=== PATIENT | male | born 1980 | race Caucasian/White ===

== ENCOUNTER 2016-02-09 03:18 | Emergency (ER) | payer OTHER ==
[~2016-02-09] VITALS: Ht 167.6 cm; Wt 68.2 kg
[2016-02-09 03:20] VITALS: TEMP 98
[2016-02-09 04:02] LABS: BASO # 0.1 (0.0-0.2); BASO % 1.1 % (0.0-2.0); EOS # 0.2 (0.0-0.7); EOS % 1.8 % (0-4.0); GRAN # 5.9 (1.4-6.5); GRAN % 47.9 % (42.2-75.2); HEMATOCRIT 42.1 % (42.0-52.0); HEMOGLOBIN 15.7 g/dl (13.5-18.0); LYMPH # 4.9 (1.2-3.4); LYMPH % 39.8 % (20.0-51.0); MEAN CELL VOLUME 87 fl (80.0-100.0); MEAN CORPUSCULAR HEMOGLOBIN 32 pg (27.0-31.0); MEAN CORPUSCULAR HGB CONC 37 g/dl (33.0-37.0); MEAN PLATELET VOLUME 10.1 fl (7.4-10.4); MONO # 1.1 (0.1-0.6); PLATELET COUNT 234 K/mm3 (130-400); RED BLOOD COUNT 4.85 M/mm3 (4.20-5.60); REDCELL DISTRIBUTION WIDTH-CV 12.9 % (11.5-14.5); WHITE BLOOD COUNT 12.3 K/mm3 (4.8-10.8)
[2016-02-09 04:12] LABS: ADJUSTED CALCIUM 9.1 mg/dL (8.4-10.2); ALANINE AMINOTRANSFERASE 48 U/L (21-72); ALKALINE PHOSPHATASE 82 U/L (50-136); ANION GAP 13 mmol/L (7-16); BILIRUBIN,TOTAL 0.7 mg/dL (0.0-1.0); BLOOD UREA NITROGEN 16 mg/dL (9-20); CALCIUM 9.1 mg/dL (8.4-10.2); CARBON DIOXIDE 24 mmol/L (22-30); CHLORIDE 104 mmol/L (98-107); CREATININE, serum 1.12 mg/dL (0.66-1.25); GLUCOSE 93 mg/dL (74-106); LIPASE 129 U/L (23-300); POTASSIUM 3.9 mmol/L (3.4-5.0); SODIUM 141 mmol/L (137-145); TOTAL PROTEIN 7.2 gm/dL (6.4-8.2)
[2016-02-09 04:32] LABS: TROPONIN-I < 0.012 ng/mL (0.000-0.034)
[2016-02-09 04:47] VITALS: BP 119/81; PULSE 77
== END 2016-02-09 04:47 | disposition home or self-care (01) ==
LOC: COL.ER 03:18
PROVIDERS: Emergency Medicine
DX: K29.70 Gastritis, unspecified, without bleeding (principal); F17.290 Nicotine dependence, other tobacco product, uncomplicated

== ENCOUNTER 2019-07-17 10:56 | Inpatient (IN) | payer SELFPAY ==
[~2019-07-17] VITALS: Ht 167.6 cm; Wt 70.8 kg
[2019-07-23] VITALS (12 sets, daily range): BP systolic 102–145; BP diastolic 49–83; PULSE 81–97; TEMP 97.9–100.1
[2019-07-23] MEDS ORDERED: ALEVE 220MG220 MG PO (08:03)
[2019-07-23] MEDS ORDERED: NORCO 325 MG-51 TAB PO (08:04)
[2019-07-23] MEDS ORDERED: PRILOTC PO (08:04)
--- NOTE | 2019-07-23 08:09 | NUR ---
Patient arrives [place] [facility] [place]. He is alert and oriented. Procedure is confirmed. He denies any questions and verbalizes understanding. Breath sounds clear bilaterally to auscultation. Clear S1S2 heart tones heard with regular rate noted. VSS on room air.
--- NOTE | 2019-07-23 10:03 | NUR ---
Patient's temperature ranges from 98.6 degrees to 100.1 degrees, taken 5 times both oral and temporal. He denies any symptoms when asked infectious disease questions. He was tested for COVID 19 and the result was negative. He has been self isolating since his test was collected. Dr. Rogers is notified of low-grade fever and elects to proceed with surgery.
--- NOTE | 2019-07-23 12:58 | NUR ---
Dr Ontiveros notified of consult.
--- NOTE | 2019-07-23 16:19 | NUR ---
Dr Rogers here to see patient.
--- NOTE | 2019-07-23 17:16 | NUR ---
Patient alert and oriented, answers questions appropriately. See assessment. Epidural catheter intact to low back, no drainage or redness noted to site. PCEA settings verified against APR. C/o slight numbness to BLE, pulses palpable, able to move BLE on bed. Patient has many questions about procedure today and what to expect within the next day, often repeating same questions several times. No other c/o at this time.
--- NOTE | 2019-07-23 17:47 | NUR ---
Dr Ontiveros here to see patient.
--- NOTE | 2019-07-23 17:48 | NUR ---
Dr Ontiveros here to see patient.
[2019-07-23 18:37] LABS: BASO # 0.1 (0.0-0.2); BASO % 0.7 % (0.0-2.0); EOS # 0.1 (0.0-0.7); GRAN # 8.1 (1.4-6.5); GRAN % 70.1 % (42.2-75.2); HEMATOCRIT 40.8 % (42.0-52.0); HEMOGLOBIN 14.3 g/dl (13.5-18.0); LYMPH # 2.6 (1.2-3.4); LYMPH % 22.9 % (20.0-51.0); MEAN CELL VOLUME 89 fl (80.0-100.0); MEAN CORPUSCULAR HEMOGLOBIN 31 pg (27.0-31.0); MEAN CORPUSCULAR HGB CONC 35 g/dl (33.0-37.0); MEAN PLATELET VOLUME 9.7 fl (7.4-10.4); MONO # 0.6 (0.1-0.6); MONO % 5.1 % (1.7-9.3); PLATELET COUNT 312 K/mm3 (130-400); RED BLOOD COUNT 4.58 M/mm3 (4.20-5.60); REDCELL DISTRIBUTION WIDTH-CV 12.4 % (11.5-14.5)
[2019-07-23 18:49] LABS: ALBUMIN 3.9 gm/dL (3.5-5.0); BILIRUBIN,TOTAL 0.4 mg/dL (0.0-1.0); C-REACTIVE PROTEIN 1.4 mg/dL (0.0-0.9); CALCIUM 8.9 mg/dL (8.4-10.2); CREATININE, serum 0.86 (0.66-1.25); POTASSIUM 3.7 mmol/L (3.4-5.0); TOTAL PROTEIN 6.9 gm/dL (6.4-8.2)
[2019-07-24] VITALS (10 sets, daily range): BP systolic 103–129; BP diastolic 60–78; PULSE 86–98; TEMP 98.1–99.2
--- NOTE | 2019-07-24 08:45 | NUR ---
Patient alert and oriented, answers questions appropriately. See assessment. Rondon catheter in place, patent, and draining clear yellow urine. Epidural catheter in place to low back, catheter intact, no drainage noted to insertion site. PCEA settings verified against the MAR. Patient reports numbness to BLE, pulses palpable, able to move BLE on bed. Patient had bowel movement in bed, per report has refused to get OOB or use bedpan throughout previous shift. Patient linens changed, bed bath given. Encouraged patient to use bedside commode or bedpan. Patient states "it's easier for me if I just go and you clean me up." Patient also c/o pain to urethra 10/16, rondon catheter repositioned. Patient states "I need to rest, I need more epidural drugs so I can sleep." Anesthesia notified of epidural bag complete.
--- NOTE | 2019-07-24 09:00 | NUR ---
Patient c/o urethral pain 09/15. Requests dose change of epidural r/t urethral pain. Explained to patient pain is r/t rondon catheter. Patient adamant he gets epidural increased. States "I came here to sleep and get rest and I can't do either if I have uretheral pain. Offered to remove rondon catheter, patient refused.
--- NOTE | 2019-07-24 09:56 | NUR ---
SW met with the patient to discuss discharge plan. The patient lives in [place] with his , Geeta Alcazar (ph#[phone]). He reports independence with ADLs and does not have any DME. The patient's primary care provider is Myrna Robledo PA-C and he receives his medications at [facility]. He reports no difficulties obtaining his meds. The patient is self pay. Financial Counseling was consulted and the patient was provided with a Financial Assistance Application. The patient does not have advanced directives and he was not interested in completing one at this time. The patient plans to return home with his upon discharge. SW to continue to follow as needed.
--- NOTE | 2019-07-24 11:00 | NUR ---
Patient upset, states "I don't understand why Dr Rogers didn't do the surgery he was suppose to do, I can't even work like this". Explained to patient that Dr Rogers decision was based on his finding and what he feels is best for the patient. Patient visibly upset and states "I'm not even getting the care I was suppose to get when I agreed to this." Explained to patient that he will have colonoscopy today and that we can proceed from there.
--- NOTE | 2019-07-24 11:56 | NUR ---
First visit from the dentofacial orthopedics dentist. No needs right now.
--- NOTE | 2019-07-24 12:57 | NUR ---
Patient to colonoscopy at 1215.
--- NOTE | 2019-07-24 13:30 | NUR ---
Patient returns from colonoscopy, immediately asks for Dr Rogers, patient wants to proceed with hemmorhoid surgery. Patient notified that Dr Ontiveros has communicated with Dr Rogers r/t colonoscopy and plan of care. Patient requests food. No other c/o at this time.
--- NOTE | 2019-07-24 14:00 | NUR ---
Patient c/o pain to urethra. Encouraged patient to ambulate to bathroom to wash and change gowns. Patient refuses. States "My legs feel weak, I need to rest". Informed patient he would be assisted to bathroom, continues to refuse.
--- NOTE | 2019-07-24 15:30 | NUR ---
Patient continues with numerous complains, unable to satisfy patient. Has had several concerns throughout the day about his providers, inability to rest, pain control. Patient has been encouraged to get out of bed to use the bathroom and ambulate. Patient has continued to have bowel movements in bed, stating "it's easier for me to go to the bathroom in bed and you clean me up". Encouraged patient use bedpan, which he refuses as well. Patient continuously states "no one is informing me of what is going on, no one has been in my room for the last six hours." Patient has been updated on plan of care several times throughout the day.
--- NOTE | 2019-07-24 17:00 | NUR ---
Patient has requested food the past hour, offered food on unit, patient states "I haven't eaten in 24 hours, I need food", yet refuses food on unit, wants to wait for supper tray. Supper tray arrived, dietary personnel brought tray into room and patient immediately starts raising voice at dietary staff, saying he cannot eat what they brought and that dietary staff doesn't know what they are doing. Upon asking patient what he would like to eat, patient states "I don't know what I'm suppose to eat, no one has told me anything all day". Patient has been informed several times throughout the day of plan of care.
--- NOTE | 2019-07-24 18:00 | NUR ---
Patient continues to be irate, stating "I need to know if I'm going home, I need to get pain medicine before the pharmacy closes". Informed patient he will be staying the night tonight. Patient states "that's not what I was told, Dr Ontiveros told me I would go home today". Informed patient that Dr Rogers is attending and it is his responsibility to discharge patient when he feels appropriate. Patient states "I can't get any sleep here and you won't let my stay the night, I can't sleep without my ." Informed patient hospital staff has to do assessment/cares/etc and unfortunately not much rest happens in the hospital. Patient continues to complain about all cares.
--- NOTE | 2019-07-24 18:24 | NUR ---
Patient completed bowel prep at about 2345. Tolerated this well. Patient refused to get out of bed to have a bowel movement and uses the bedpan for the first part of the shift. Then patient decided to use briefs and have staff clean him up. Patient has been NPO since midnight. Epidural in place, but patient complains of intermittent pain to catheter and also his midback. Reported this to day shift to speak with Anesthesia about the pain. Patient states both legs are numb, but he is able to move them on the bed. Epidural site is CDI. Yañez catheter present and draining clear, yellow urine. IVF continue to IV in right wrist.
--- NOTE | 2019-07-24 18:51 | NUR ---
Dr Rogers here to see patient, see orders. Attempted to remove rondon catheter, patient refused unless lidocaine injected prior to rondon removal. Educated rondon on catheter removal. Rondon catheter removed.
[2019-07-24] MEDS ORDERED: NORCO 325 MG-51 TAB PO (19:01)
[2019-07-24] MEDS ORDERED: CIPRO 500MG TA500 MG PO (19:01)
--- NOTE | 2019-07-24 20:25 | NUR ---
PT ISAAC WITH ALL HIS BELONGINGS WITH HIM, VSS. PT AMBULATORY AND ESCORTED BY DIRECTOR OF RECRUITMENT. PT HAS HIS PAPER WORKS WITH HIM INCLUDING PAIN MED PRESCRIPTION. DISCHARGE INSTRUCTIONS GIVEN AND PT VERBALIZED UNDERSTANDING.
[2019-07-27 09:17] LABS: TB GOLD INTERPRETATION Negative (Negative)
== END 2019-07-24 20:00 | disposition home or self-care (01) | DRG 346 ==
LOC: SURG 07-23 07:23 → INPTSU 07-23 07:23 → SDCO 07-23 09:30 → EDSTATUS 07-23 09:30 → SURG 07-23 09:30
PROVIDERS: Internal Medicine Gastroenterology; ADMIT Surgery
PROC: 0DBP0ZX Excision of Rectum, Open Approach, Diagnostic (ICD-10-PCS; principal; 2019-07-23 09:30)
PROC: 0DJD8ZZ Inspection of Lower Intestinal Tract, Via Natural or Artificial Opening Endoscopic (ICD-10-PCS; 2019-07-24)
DX: K60.5 Anorectal fistula (principal); K64.2 Third degree hemorrhoids; K64.5 Perianal venous thrombosis; K57.30 Diverticulosis of large intestine without perforation or abscess without bleeding; K64.4 Residual hemorrhoidal skin tags; R39.11 Hesitancy of micturition; J45.909 Unspecified asthma, uncomplicated; Z88.1 Allergy status to other antibiotic agents
CPT/HCPCS: J0690; J1170; J2060; J2250; J2270; J2405; J2704; J2765; J3010; J7030; J7120

== ENCOUNTER → 2019-07-30 | Outpatient (CLI) | payer SELFPAY ==
[~2019-07-30] MED LIST: ALEVE 220MG220 MG PO; CIPRO 500MG TA500 MG PO; NORCO 325 MG-51 TAB PO; PRILOTC PO
== END ==
LOC: COL.LAB 16:14
DX: K60.3 Anal fistula (principal); K60.2 Anal fissure, unspecified